=== PATIENT | male | born 1985 | race Caucasian/White ===

== ENCOUNTER 2016-09-25 04:16 | Inpatient (IN) | payer BC ==
[~2016-09-25] VITALS: Ht 185.4 cm; Wt 80.7 kg
[2016-09-25 08:46] VITALS: BP 93/49
[2016-09-25] MEDS ORDERED: Morphine Sulfate 2mg/ml Inj IVP PRN (09:45)
[2016-09-25 10:10] LABS: BASOPHILS % (AUTO) 0.4 % (0.0-2.0); LYMPHOCYTES % (AUTO) 9.5 % (20.0-45.0); MEAN CORPUSCULAR HEMOGLOBIN 30.3 PG (27.0-31.0); MEAN CORPUSCULAR HGB CONC 34.4 G/DL (32.0-36.0); MEAN CORPUSCULAR VOLUME 88 FL (80-99); MEAN PLATELET VOLUME 6.3 FL (6.5-10.1); MONOCYTES % (AUTO) 7.9 % (1.0-10.0); NEUTROPHILS % (AUTO) 82.2 % (45.0-75.0); PLATELET COUNT 339 K/UL (150-450); WHITE BLOOD COUNT 17.4 K/UL (4.8-10.8)
[2016-09-25 10:28] LABS: ALANINE AMINOTRANSFERASE 16 U/L (3-41); ALBUMIN/GLOBULIN RATIO 1.4 (1.0-2.7); ANION GAP 11 (5-15); ASPARTATE AMINO TRANSFERASE 17 U/L (5-40); CALCIUM 7.7 mg/dL (8.6-10.2); CARBON DIOXIDE 23 mEQ/L (20-30); CHLORIDE 100 mEQ/L (98-107); CREATININE 1.3 mg/dL (0.7-1.2); GLOMERULAR FILTRATION RATE > 60 mL/min (>60); HEMOLYSIS 3; POTASSIUM 3.9 mEQ/L (3.4-4.9); SODIUM 134 mEQ/L (135-145); TOTAL PROTEIN 5.1 g/dL (6.6-8.7)
[2016-09-25] MEDS ORDERED: Nitroglycerin Subl 0.4mg tab (Bottle Of 25) SL PRN (11:45)
[2016-09-25] MEDS ORDERED: DuoNeb 0.5-3(2.5)mg/3ml neb HHN PRN (12:00)
[2016-09-25] MEDS ORDERED: Miralax 17gm pkt ORAL PRN (12:00)
[2016-09-25 12:04] LABS: APPEARANCE,URINE SLIGHTLY CLOUDY; KETONES,URINE NEGATIVE (NEGATIVE); LEUKOCYTE ESTERASE ,URINE 2+ (NEGATIVE); NITRITE,URINE NEGATIVE (NEGATIVE); PH,URINE 6 (4.5-8.0); PROTEIN,URINE NEGATIVE (NEGATIVE); UROBILINOGEN,URINE NORMAL MG/DL (0.0-1.0)
[2016-09-25 12:16] VITALS: BP 95/65
[2016-09-25 12:55] LABS: BACTERIA,URINE FEW /HPF; RBC,URINE 0-2 /HPF (0 - 0); SQUAMOUS EPITHELIAL CELL,UR OCCASIONAL /LPF (NONE/OCC); WBC,URINE 15-20 /HPF (0 - 0)
[2016-09-25] MEDS: Cefepime HCl 2 GM in D5W 110 ML IV SCH (12:56)
--- NOTE | 2016-09-25 13:21 | Diagnostic Imaging Report ---
Indication: DYSPNEA Technique: Single portable AP view of the chest. Findings: Comparison: None. Left lung volume is mildly decreased compared to right with basal linear densities. Right lung normally inflated, clear. The bones and extra pulmonary soft tissues, cardiomediastinal silhouette, pulmonary vasculature, and pleural surfaces are unremarkable. IMPRESSION: Left lung base subsegmental atelectasis with apparent mild parenchymal volume loss. Otherwise negative portable AP chest.
[2016-09-25] MEDS ORDERED: Vancomycin 1.5 GM in D5W 325 ML IVPB ONE (14:00)
--- NOTE | 2016-09-25 15:17 | History and Physical ---
History of Present Illness General Date patient seen: Sep 25, 2016 Present Illness HPI 31 year old male without any PMHx expect for sexual promiscuity on Truvida for HIV prophylaxis, was taken by paramedics to [facility] with CC of fevers, headache and weakness, diarrhea as well. He had spinal tap in ER which was negative. He received a dose of Ceftriaxone and IV fluids and transferred to [place] under my care. Currently pt is feeling slightly better. He had total of > 5 BM in the last 24 hours. No sick contact. Allergies: Coded Allergies: NO KNOWN ALLERGIES (Verified Allergy, Unknown, 09/25/16) Patient History History Provided By: Patient Healthcare decision maker Resuscitation status Full Code Advanced Directive on File Review of Systems Constitutional: Reports: malaise, weakness Eye: Reports: no symptoms Gastrointestinal: Reports: diarrhea Physical Exam General Appearance: WD/WN Lines, tubes and drains: peripheral, central line HEENT: normocephalic, atraumatic Neck: non-tender, normal alignment Respiratory/Chest: chest wall non-tender, normal breath sounds Cardiovascular/Chest: normal peripheral pulses, normal rate Abdomen: normal bowel sounds, soft Genitourinary/Rectal: normal genital exam, heme negative stool Last 24 Hour Vital Signs Date Time Temp Pulse Resp B/P Pulse Ox O2 Delivery O2 Flow Rate FiO2 09/25/16 13:55 98.2 09/25/16 12:16 98.2 114 18 95/65 98 Room Air 09/25/16 11:30 104 16 Room Air 21 09/25/16 08:46 99.7 106 18 93/49 97 Room Air Laboratory Tests Test 09/25/16 09:45 09/25/16 11:40 White Blood Count 17.4 K/UL (4.8-10.8) H Red Blood Count 4.60 M/UL (4.70-6.10) L Hemoglobin 13.9 G/DL (14.2-18.0) L Hematocrit 40.4 % (42.0-52.0) L Mean Corpuscular Volume 88 FL (80-99) Mean Corpuscular Hemoglobin 30.3 PG (27.0-31.0) Mean Corpuscular Hemoglobin Concent 34.4 G/DL (32.0-36.0) Red Cell Distribution Width 12.0 % (11.6-14.8) Platelet Count 339 K/UL (150-450) Mean Platelet Volume 6.3 FL (6.5-10.1) L Neutrophils (%) (Auto) 82.2 % (45.0-75.0) H Lymphocytes (%) (Auto) 9.5 % (20.0-45.0) L Monocytes (%) (Auto) 7.9 % (1.0-10.0) Eosinophils (%) (Auto) 0.0 % (0.0-3.0) Basophils (%) (Auto) 0.4 % (0.0-2.0) Sodium Level 134 mEQ/L (135-145) L Potassium Level 3.9 mEQ/L (3.4-4.9) Chloride Level 100 mEQ/L (98-107) Carbon Dioxide Level 23 mEQ/L (20-30) Anion Gap 11 (5-15) Blood Urea Nitrogen 10 mg/dL (7-23) Creatinine 1.3 mg/dL (0.7-1.2) H Estimat Glomerular Filtration Rate > 60 mL/min (>60) Glucose Level 126 mg/dL (74-106) H Calcium Level 7.7 mg/dL (8.6-10.2) L Total Bilirubin 0.8 mg/dL (0.0-1.2) Aspartate Amino Transf (AST/SGOT) 17 U/L (5-40) Alanine Aminotransferase (ALT/SGPT) 16 U/L (3-41) Alkaline Phosphatase 49 U/L (40-129) Total Protein 5.1 g/dL (6.6-8.7) L Albumin 3.0 g/dL (3.5-5.2) L Globulin 2.1 g/dL Albumin/Globulin Ratio 1.4 (1.0-2.7) Urine Color Yellow Urine Appearance Slightly cloudy Urine pH 6 (4.5-8.0) Urine Specific [place] 1.010 (1.005-1.035) Urine Protein Negative (NEGATIVE) Urine Glucose (UA) Negative (NEGATIVE) Urine Ketones Negative (NEGATIVE) Urine Occult Blood 1+ (NEGATIVE) H Urine Nitrite Negative (NEGATIVE) Urine Bilirubin Negative (NEGATIVE) Urine Urobilinogen Normal MG/DL (0.0-1.0) Urine Leukocyte Esterase 2+ (NEGATIVE) H Urine RBC 0-2 /HPF (0 - 0) H Urine WBC 15-20 /HPF (0 - 0) H Urine Squamous Epithelial Cells Occasional /LPF Urine Bacteria Few /HPF (NONE) Height (Feet): 6 Height (Inches): 1.00 Weight (Pounds): 178 Medications Current Medications Medications (Trade) Dose Ordered Sig/Misael Route PRN Reason Start Time Stop Time Status Last Admin Dose Admin Acetaminophen (Tylenol) 650 mg Q4H PRN ORAL Mild Pain/Temp > 100.5 09/25/16 12:00 10/25/16 11:59 09/25/16 12:56 Albuterol/ Ipratropium 3 ml 3 ml Q4H PRN HHN Shortness of Breath 09/25/16 12:00 09/30/16 11:59 Cefepime HCl/ Dextrose (Maxipime/D5W) 110 ml @ 220 mls/hr Q12HR@0100,1300 IV 09/25/16 13:00 10/02/16 12:59 09/25/16 12:56 Heparin Sodium (Porcine) (Heparin 5000 units/ml) 5,000 units EVERY 12 HOURS SUBQ 09/25/16 21:00 10/25/16 20:59 Morphine Sulfate (Morphine Sulfate) 2 mg Q4H PRN IVP Moderate Pain (Pain Scale 4-6) 09/25/16 09:45 10/02/16 09:44 Nitroglycerin (Ntg) 0.4 mg Q5MIN X 3 DOSES PRN SL Prn Chest Pain 09/25/16 11:45 10/25/16 11:44 Ondansetron HCl (Zofran) 4 mg Q6H PRN IVP Nausea & Vomiting 09/25/16 12:00 10/25/16 11:59 Polyethylene Glycol (Miralax) 17 gm DAILYPRN PRN ORAL Constipation 09/25/16 12:00 10/25/16 11:59 Temazepam (Restoril) 15 mg HSPRN PRN ORAL Insomnia 09/25/16 21:00 10/02/16 20:59 Vancomycin HCl 1.5 gm/Dextrose 325 ml @ 162.5 mls/ hr ONCE ONCE IVPB 09/25/16 14:00 09/25/16 15:59 09/25/16 14:08 Vancomycin HCl 1 ea 1 ea DAILY PRN MISC . 09/25/16 11:45 10/25/16 11:44 Vancomycin HCl/ Dextrose (Vancomycin/D5W) 275 ml @ 183.333 mls/hr Q12HR@0200,1400 IVPB 09/26/16 02:00 10/01/16 01:59 Assessment/Plan Problem List: (1) Intractable diarrhea ICD Codes: R19.7 - Diarrhea, unspecified SNOMED: 806034224 (2) Hypotension ICD Codes: I95.9 - Hypotension, unspecified SNOMED: 31234422 (3) Sepsis ICD Codes: A41.9 - Sepsis, unspecified organism SNOMED: 08573515 Assessment/Plan santos cultures broad spectrum antibiotics ID consult check HIV status IV fluids HORTENCIA RINCON Sep 25, 2016 15:17
[2016-09-25 16:00] VITALS: BP 96/60
--- NOTE | 2016-09-25 16:20 | Consultation ---
Consult Note Consult Note ID CONSULT: Faizan# [id number] Assessment/Plan ASSESSMENT: 31 y/o male with: // Diarrhea r/o infectious - stool studies pending // Possible UTI r/o STI // Headache, mild - improved, no evidence meningitis - SP LP OSH - CSF: WBC 3, RBC 36, TP 33, Glc 77, GS, Cx, HSV PCR pending // Probable sepsis // Leukocytosis - worse // Fever - improved // VASILIY - improved, Cr 1.54-->1.3 // High risk sexual behavior, on truvada PrEP // IVDA / methamphetamine abuse - no evidence injection site cellulitis r/o SBE / bacteremia // NKDA // Full Code PLAN: - continue empiric IV vancomycin, cefepime d# 1 - check HIV PCR, RPR, stool culture, CT/GC NAAT, TTE - f/u cultures - f/u gonzales ( flu, CSF GS, Cx, HSV PCR ) - monitor CBC, temperatures - monitor BMP Thanks! Will follow LAYNE WRIGHT Sep 25, 2016 16:20
[2016-09-25 20:00] VITALS: BP 99/55
--- NOTE | 2016-09-25 21:38 | Consultation ---
DATE OF CONSULTATION: 09/25/2016 INFECTIOUS DISEASES CONSULTATION REFERRING PHYSICIAN: Anika Saleh M.D. REASON FOR CONSULTATION: Sepsis. HISTORY OF PRESENT ILLNESS: This is a 31-year-old male with a history of IV drug abuse and high risk sexual behavior on Truvada pre-exposure prophylaxis, transferred from [facility] on 09/25/2016 with fevers, diarrhea and headaches. The patient underwent lumbar puncture at [place] and CSF was not consistent with meningitis. The patient complains of watery diarrhea and fevers of acute onset yesterday. He also endorses IV methamphetamine abuse in the right AC fossa. There is no evidence of cellulitis. Urinalysis suggests possible urinary tract infection. Cultures are pending. He has been started on empiric vancomycin and cefepime. ID now consulted to assist in management. PAST MEDICAL HISTORY: None. PAST SURGICAL HISTORY: None. ALLERGIES: No known drug allergies. MEDICATIONS: 1. Vancomycin. 2. Cefepime. 3. Subcutaneous heparin. FAMILY HISTORY: Noncontributory. SOCIAL HISTORY: The patient has a high risk sexual behavior and is on Truvada pre-exposure prophylaxis. He also has a history of IV methamphetamine abuse. REVIEW OF SYSTEMS: As per history of present illness. Ten systems reviewed. All pertinent positives and negatives noted. PHYSICAL EXAMINATION: VITAL SIGNS: Maximum temperature 99.7 degrees, blood pressure 96/65, heart rate 114, respiratory rate 18, and saturating 98% on room air. GENERAL: No apparent distress. Nontoxic appearing. CARDIOVASCULAR: Regular rate and rhythm. Tachycardia, no murmurs. PULMONARY: Clear to auscultation bilaterally. ABDOMINAL: Bowel sounds present. Soft, nondistended, and nontender. EXTREMITIES: No edema. SKIN: No rash. NEUROLOGICAL: Alert and oriented x3, nonfocal. LABORATORY DATA: White blood cell count 17.4, increased from 15.9 with left shift, hemoglobin 13.9, and platelets 339,000. Sodium 134, potassium 3.9, chloride 100, bicarbonate 23, BUN 10, and creatinine 1.3 decreased from 1.54. Liver function tests are within normal limits. Lactic acid is 2.1. MICROBIOLOGY: 1. On 09/25/2015, blood culture pending. 2. On 09/25/2015, urine culture pending. 3. On 09/25/2015, sputum culture pending. 4. On 09/25/2015, C. difficile toxin pending. 5. On 09/24/2015, outside hospital blood culture pending. 6. On 09/24/2015, outside hospital CSF and Gram stain culture pending. 7. On 09/24/2015, outside hospital influenza negative. IMAGING: On 09/25/2015, chest x-ray, left lower lobe atelectasis. ASSESSMENT: 1. Diarrhea, rule out infectious. Stool studies are pending. 2. Possible urinary tract infection rule out sexually transmitted infection. 3. Headache, mild and improved. No evidence of meningitis. 4. Probable sepsis. 5. Leukocytosis, worsening. 6. Fever, improved. 7. Acute renal insufficiency, improved. 8. High risk sexual behavior on Truvada pre-exposure prophylaxis. 9. Intravenous drug abuse/methamphetamine abuse rule out endocarditis and bacteremia. 10. No known drug allergies. 11. Full Code. PLAN: 1. Continue empiric IV vancomycin and cefepime day #1. 2. Check HIV, PCR, RPR, stool culture, chlamydia and gonorrhea. 3. Nucleic acid amplification test. 4. , echocardiogram. 5. Follow up cultures and [place] blood cultures, flu screen, CSF, Gram stain culture, and herpes simplex virus PCR. 6. Monitor CBC and temperatures. 7. Monitor BMP. Thank you. We will follow. Silvestre Bojorquez M.D. DR: SUZE JOB#: [id number] CC: Anika Saleh M.D.; Fax#: [phone] Son M.D; Fax#: [phone]
[2016-09-25] MEDS: Heparin 5000 units/ml inj SUBQ SCH (22:21)
[2016-09-26 00:14] VITALS: BP 100/60
[2016-09-26] MEDS ORDERED: Vancomycin 1 GM in D5W 275 ML IV SCH (00:30)
[2016-09-26] MEDS: Cefepime HCl 2 GM in D5W 110 ML IV SCH ×2 (01:02→12:05)
[2016-09-26] MEDS: Vancomycin 1250mg/D5W 275ml IVPB SCH ×4 (02:20→13:16)
[2016-09-26 04:00] VITALS: BP 98/58
[2016-09-26 08:18] LABS: BASOPHILS % (AUTO) 0.4 % (0.0-2.0); EOSINOPHILS % (AUTO) 0.5 % (0.0-3.0); LYMPHOCYTES % (AUTO) 18.6 % (20.0-45.0); MEAN CORPUSCULAR HEMOGLOBIN 30.7 PG (27.0-31.0); MEAN CORPUSCULAR HGB CONC 34.8 G/DL (32.0-36.0); MEAN CORPUSCULAR VOLUME 88 FL (80-99); MEAN PLATELET VOLUME 6.1 FL (6.5-10.1); MONOCYTES % (AUTO) 9.5 % (1.0-10.0); PLATELET COUNT 312 K/UL (150-450); RED BLOOD COUNT 4.38 M/UL (4.70-6.10); RED CELL DISTRIBUTION WIDTH 12.3 % (11.6-14.8); WHITE BLOOD COUNT 10.7 K/UL (4.8-10.8)
[2016-09-26 08:19] VITALS: BP 110/69
[2016-09-26] MEDS: Heparin 5000 units/ml inj SUBQ SCH ×2 (08:27→21:00)
[2016-09-26 08:36] LABS: ALANINE AMINOTRANSFERASE 20 U/L (3-41); ANION GAP 11 (5-15); ASPARTATE AMINO TRANSFERASE 22 U/L (5-40); CARBON DIOXIDE 26 mEQ/L (20-30); CHLORIDE 99 mEQ/L (98-107); CREATININE 1.2 mg/dL (0.7-1.2); GLOMERULAR FILTRATION RATE > 60 mL/min (>60); HEMOLYSIS 6; POTASSIUM 3.9 mEQ/L (3.4-4.9); SODIUM 136 mEQ/L (135-145); TOTAL PROTEIN 5.6 g/dL (6.6-8.7)
[2016-09-26 12:43] VITALS: BP 109/69
--- NOTE | 2016-09-26 15:31 | Pulmonology Progress Note ---
Assessment/Plan Problems: (1) Intractable diarrhea (2) Hypotension (3) Sepsis Assessment/Plan cultures pending tried to call [facility] case management department, nobody was available afebrile feeling better Subjective ROS Limited/Unobtainable: No Constitutional: Reports: no symptoms HEENT: Repors: no symptoms Respiratory: Reports: no symptoms Cardiovascular: Reports: no symptoms Gastrointestinal/Abdominal: Reports: no symptoms Genitourinary: Reports: no symptoms Allergies: Coded Allergies: NO KNOWN ALLERGIES (Verified Allergy, Unknown, 09/25/16) Objective Last 24 Hour Vital Signs Date Time Temp Pulse Resp B/P Pulse Ox O2 Delivery O2 Flow Rate FiO2 09/26/16 12:43 98.4 83 18 109/69 97 Room Air 09/26/16 08:19 99.0 88 18 110/69 96 Room Air 09/26/16 07:42 83 09/26/16 07:26 93 15 Room Air 21 09/26/16 04:00 98.0 98 20 98/58 98 Room Air 09/26/16 04:00 79 09/26/16 00:14 98.0 100 20 100/60 98 Room Air 09/26/16 00:00 79 09/25/16 23:21 99.5 09/25/16 20:00 88 09/25/16 20:00 99.5 93 18 99/55 98 Room Air 09/25/16 19:08 95 18 Room Air 21 09/25/16 16:00 90 09/25/16 16:00 98.1 93 18 96/60 98 Room Air Intake and Output 09/25/16 09/26/16 19:00 07:00 Intake Total 320 ml 1285.000 ml Balance 320 ml 1285.000 ml Intake Oral 120 ml IV Total 200 ml 1285.000 ml # Voids 1 # Bowel Movements 3 General Appearance: WD/WN HEENT: normocephalic, atraumatic Respiratory/Chest: chest wall non-tender, lungs clear Cardiovascular: normal peripheral pulses, normal rate Abdomen: normal bowel sounds, soft, non tender Genitourinary: normal external genitalia Extremities: no cyanosis Skin: no lesions 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 Microbiology Date/Time Source Procedure Growth Status 09/25/16 20:10 Stool Clostridium difficile Toxin Assay - Final Complete 09/25/16 11:40 Indwelling Cath Urine Culture - Preliminary NO GROWTH Resulted Laboratory Tests 09/25/16 18:00: Rapid Plasma Reagin Non reactive, HIV-1 RNA (PCR) log10 Value [Pending], HIV-1 RNA Ultraquantitative (PCR) [Pending] 09/26/16 06:55: White Blood Count 10.7, Red Blood Count 4.38L, Hemoglobin 13.5L, Hematocrit 38.7L, Mean Corpuscular Volume 88, Mean Corpuscular Hemoglobin 30.7, Mean Corpuscular Hemoglobin Concent 34.8, Red Cell Distribution Width 12.3, Platelet Count 312, Mean Platelet Volume 6.1L, Neutrophils (%) (Auto) 71.0, Lymphocytes ( %) (Auto) 18.6L, Monocytes (%) (Auto) 9.5, Eosinophils (%) (Auto) 0.5, Basophils (%) (Auto) 0.4, Sodium Level 136, Potassium Level 3.9, Chloride Level 99, Carbon Dioxide Level 26, Anion Gap 11, Blood Urea Nitrogen 6L, Creatinine 1.2, Estimat Glomerular Filtration Rate > 60, Glucose Level 109H, Calcium Level 8.0L, Total Bilirubin 0.4, Aspartate Amino Transf (AST/SGOT) 22, Alanine Aminotransferase (ALT/SGPT) 20, Alkaline Phosphatase 57, Total Protein 5.6L, Albumin 2.9L, Globulin 2.7, Albumin/Globulin Ratio 1.0 Current Medications Medications (Trade) Dose Ordered Sig/Misael Route PRN Reason Start Time Stop Time Status Last Admin Dose Admin Acetaminophen (Tylenol) 650 mg Q4H PRN ORAL Mild Pain/Temp > 100.5 09/25/16 12:00 10/25/16 11:59 09/25/16 22:22 Albuterol/ Ipratropium 3 ml 3 ml Q4H PRN HHN Shortness of Breath 09/25/16 12:00 09/30/16 11:59 Cefepime HCl/ Dextrose (Maxipime/D5W) 110 ml @ 220 mls/hr Q12HR@0100,1300 IV 09/25/16 13:00 10/02/16 12:59 09/26/16 12:05 Emtricitabine/ Tenofovir (Truvada) 1 tab BEDTIME ORAL 09/26/16 20:00 10/26/16 19:59 UNV Heparin Sodium (Porcine) (Heparin 5000 units/ml) 5,000 units EVERY 12 HOURS SUBQ 09/25/16 21:00 10/25/16 20:59 09/25/16 22:21 Morphine Sulfate (Morphine Sulfate) 2 mg Q4H PRN IVP Moderate Pain (Pain Scale 4-6) 09/25/16 09:45 10/02/16 09:44 Nitroglycerin (Ntg) 0.4 mg Q5MIN X 3 DOSES PRN SL Prn Chest Pain 09/25/16 11:45 10/25/16 11:44 Ondansetron HCl (Zofran) 4 mg Q6H PRN IVP Nausea & Vomiting 09/25/16 12:00 10/25/16 11:59 09/25/16 16:32 Polyethylene Glycol (Miralax) 17 gm DAILYPRN PRN ORAL Constipation 09/25/16 12:00 10/25/16 11:59 Potassium Chloride/Dextrose/ Sodium Chloride (KCl/D5ns) 1,005 ml @ 100 mls/hr Q10H3M IV 09/25/16 16:00 10/25/16 15:59 09/26/16 11:53 Temazepam (Restoril) 15 mg HSPRN PRN ORAL Insomnia 09/25/16 21:00 10/02/16 20:59 Vancomycin HCl 1.25 gm/Dextrose 275 ml @ 183.333 mls/hr Q12HR@0200,1400 IVPB 09/26/16 02:00 10/01/16 01:59 09/26/16 13:16 Vancomycin HCl 1 ea 1 ea DAILY PRN MISC . 09/25/16 11:45 10/25/16 11:44 HORTENCIA RINCON Sep 26, 2016 15:31
[2016-09-26 16:00] VITALS: BP 108/67
--- NOTE | 2016-09-26 16:24 | Infectious Diseases Prog Note ---
Assessment/Plan Assessment/Plan ASSESSMENT: 31 y/o male with: // Diarrhea r/o infectious - improved - C.difficile(-), stool Cx pending // Possible UTI r/o STI - UCx NGTD, CT/GC NAAT pending // Headache, mild - improved, no evidence meningitis - SP LP OSH - CSF: WBC 3, RBC 36, TP 33, Glc 77, GS, Cx, HSV PCR pending // Negative RPR, HIV Ab ( PCR pending ) // Probable sepsis SP // Leukocytosis - resolved // Fever - resolved // VASILIY - resolved // High risk sexual behavior, on truvada PrEP // IVDA / methamphetamine abuse - no evidence injection site cellulitis r/o SBE / bacteremia - BCx, TTE pending // NKDA // Full Code PLAN: - continue empiric IV vancomycin, cefepime d# 2. May be ok to DC in AM off of ABX if remains afebrile, [place] micro unremarkable - f/u UCx, BCx, HIV PCR, stool culture, CT/GC NAAT, TTE - f/u zahl ( flu, BCx, CSF GS, Cx, HSV PCR ) - requested - monitor CBC, temperatures - monitor BMP Subjective Allergies: Coded Allergies: NO KNOWN ALLERGIES (Verified Allergy, Unknown, 09/25/16) Subjective remains afebrile. feeling better, wants to go home Objective Vital Signs Last 24 Hour Vital Signs Date Time Temp Pulse Resp B/P Pulse Ox O2 Delivery O2 Flow Rate FiO2 09/26/16 12:43 98.4 83 18 109/69 97 Room Air 09/26/16 08:19 99.0 88 18 110/69 96 Room Air 09/26/16 07:42 83 09/26/16 07:26 93 15 Room Air 21 09/26/16 04:00 98.0 98 20 98/58 98 Room Air 09/26/16 04:00 79 09/26/16 00:14 98.0 100 20 100/60 98 Room Air 09/26/16 00:00 79 09/25/16 23:21 99.5 09/25/16 20:00 88 09/25/16 20:00 99.5 93 18 99/55 98 Room Air 09/25/16 19:08 95 18 Room Air 21 Height (Feet): 6 Height (Inches): 1.00 Weight (Pounds): 178 General Appearance: no acute distress Respiratory/Chest: no respiratory distress Cardiovascular: normal rate, regular rhythm Abdomen: normal bowel sounds, soft, non tender, non distended Microbiology Date/Time Source Procedure Growth Status 09/25/16 20:10 Stool Clostridium difficile Toxin Assay - Final Complete 09/25/16 11:40 Indwelling Cath Urine Culture - Preliminary NO GROWTH Resulted Laboratory Tests Test 09/25/16 18:00 09/26/16 06:55 Rapid Plasma Reagin Non reactive (Non Reactive) HIV-1 RNA (PCR) log10 Value Pending HIV-1 RNA Ultraquantitative (PCR) Pending White Blood Count 10.7 K/UL (4.8-10.8) Red Blood Count 4.38 M/UL (4.70-6.10) L Hemoglobin 13.5 G/DL (14.2-18.0) L Hematocrit 38.7 % (42.0-52.0) L Mean Corpuscular Volume 88 FL (80-99) Mean Corpuscular Hemoglobin 30.7 PG (27.0-31.0) Mean Corpuscular Hemoglobin Concent 34.8 G/DL (32.0-36.0) Red Cell Distribution Width 12.3 % (11.6-14.8) Platelet Count 312 K/UL (150-450) Mean Platelet Volume 6.1 FL (6.5-10.1) L Neutrophils (%) (Auto) 71.0 % (45.0-75.0) Lymphocytes (%) (Auto) 18.6 % (20.0-45.0) L Monocytes (%) (Auto) 9.5 % (1.0-10.0) Eosinophils (%) (Auto) 0.5 % (0.0-3.0) Basophils (%) (Auto) 0.4 % (0.0-2.0) Sodium Level 136 mEQ/L (135-145) Potassium Level 3.9 mEQ/L (3.4-4.9) Chloride Level 99 mEQ/L (98-107) Carbon Dioxide Level 26 mEQ/L (20-30) Anion Gap 11 (5-15) Blood Urea Nitrogen 6 mg/dL (7-23) L Creatinine 1.2 mg/dL (0.7-1.2) Estimat Glomerular Filtration Rate > 60 mL/min (>60) Glucose Level 109 mg/dL (74-106) H Calcium Level 8.0 mg/dL (8.6-10.2) L Total Bilirubin 0.4 mg/dL (0.0-1.2) Aspartate Amino Transf (AST/SGOT) 22 U/L (5-40) Alanine Aminotransferase (ALT/SGPT) 20 U/L (3-41) Alkaline Phosphatase 57 U/L (40-129) Total Protein 5.6 g/dL (6.6-8.7) L Albumin 2.9 g/dL (3.5-5.2) L Globulin 2.7 g/dL Albumin/Globulin Ratio 1.0 (1.0-2.7) Current Medications Medications (Trade) Dose Ordered Sig/Misael Route PRN Reason Start Time Stop Time Status Last Admin Dose Admin Acetaminophen (Tylenol) 650 mg Q4H PRN ORAL Mild Pain/Temp > 100.5 09/25/16 12:00 10/25/16 11:59 09/25/16 22:22 Albuterol/ Ipratropium 3 ml 3 ml Q4H PRN HHN Shortness of Breath 09/25/16 12:00 09/30/16 11:59 Cefepime HCl/ Dextrose (Maxipime/D5W) 110 ml @ 220 mls/hr Q12HR@0100,1300 IV 09/25/16 13:00 10/02/16 12:59 09/26/16 12:05 Emtricitabine/ Tenofovir (Truvada) 1 tab BEDTIME ORAL 09/26/16 20:00 10/26/16 19:59 UNV Heparin Sodium (Porcine) (Heparin 5000 units/ml) 5,000 units EVERY 12 HOURS SUBQ 09/25/16 21:00 10/25/16 20:59 09/25/16 22:21 Morphine Sulfate (Morphine Sulfate) 2 mg Q4H PRN IVP Moderate Pain (Pain Scale 4-6) 09/25/16 09:45 10/02/16 09:44 Nitroglycerin (Ntg) 0.4 mg Q5MIN X 3 DOSES PRN SL Prn Chest Pain 09/25/16 11:45 10/25/16 11:44 Ondansetron HCl (Zofran) 4 mg Q6H PRN IVP Nausea & Vomiting 09/25/16 12:00 10/25/16 11:59 09/25/16 16:32 Polyethylene Glycol (Miralax) 17 gm DAILYPRN PRN ORAL Constipation 09/25/16 12:00 10/25/16 11:59 Potassium Chloride/Dextrose/ Sodium Chloride (KCl/D5ns) 1,005 ml @ 100 mls/hr Q10H3M IV 09/25/16 16:00 10/25/16 15:59 09/26/16 11:53 Temazepam (Restoril) 15 mg HSPRN PRN ORAL Insomnia 09/25/16 21:00 10/02/16 20:59 Vancomycin HCl 1.25 gm/Dextrose 275 ml @ 183.333 mls/hr Q12HR@0200,1400 IVPB 09/26/16 02:00 10/01/16 01:59 09/26/16 13:16 Vancomycin HCl 1 ea 1 ea DAILY PRN MISC . 09/25/16 11:45 10/25/16 11:44 LAYNE WRIGHT Sep 26, 2016 16:24
[2016-09-26 20:00] VITALS: BP 112/70
[2016-09-27] VITALS: BP 110/66
[2016-09-27] MEDS: Cefepime HCl 2 GM in D5W 110 ML IV SCH (00:34)
[2016-09-27] MEDS: Vancomycin 1250mg/D5W 275ml IVPB SCH ×2 (02:05)
[2016-09-27 02:06] LABS: BASOPHILS % (AUTO) 0.5 % (0.0-2.0); LYMPHOCYTES % (AUTO) 30.4 % (20.0-45.0); MEAN CORPUSCULAR HEMOGLOBIN 29.6 PG (27.0-31.0); MEAN CORPUSCULAR HGB CONC 34.1 G/DL (32.0-36.0); MEAN CORPUSCULAR VOLUME 87 FL (80-99); MEAN PLATELET VOLUME 6.6 FL (6.5-10.1); NEUTROPHILS % (AUTO) 55.1 % (45.0-75.0); PLATELET COUNT 312 K/UL (150-450); RED CELL DISTRIBUTION WIDTH 11.7 % (11.6-14.8); WHITE BLOOD COUNT 6.8 K/UL (4.8-10.8)
[2016-09-27 02:21] LABS: ALANINE AMINOTRANSFERASE 31 U/L (3-41); ALBUMIN/GLOBULIN RATIO 1.1 (1.0-2.7); ANION GAP 11 (5-15); ASPARTATE AMINO TRANSFERASE 34 U/L (5-40); CALCIUM 8.1 mg/dL (8.6-10.2); CARBON DIOXIDE 25 mEQ/L (20-30); CHLORIDE 104 mEQ/L (98-107); CREATININE 0.9 mg/dL (0.7-1.2); GLOMERULAR FILTRATION RATE > 60 mL/min (>60); HEMOLYSIS 17; MAGNESIUM 1.8 mg/dL (1.7-2.5); PHOSPHORUS 2.3 mg/dL (2.5-4.8); POTASSIUM 3.9 mEQ/L (3.4-4.9); SODIUM 140 mEQ/L (135-145); TOTAL PROTEIN 5.7 g/dL (6.6-8.7)
[2016-09-27 04:00] VITALS: BP 101/62
[2016-09-27 08:00] VITALS: BP 115/70
[2016-09-27] MEDS ORDERED: Vancomycin 1gm/D5W 275ml IVPB SCH ×2 (08:00)
[2016-09-27] MEDS: Heparin 5000 units/ml inj SUBQ SCH (08:29)
[2016-09-27] MEDS ORDERED: Nitroglycerin Subl 0.4mg tab (Bottle Of 25) SL PRN (10:00)
[2016-09-27] MEDS ORDERED: DuoNeb 0.5-3(2.5)mg/3ml neb HHN PRN (11:00)
[2016-09-27] MEDS ORDERED: Morphine Sulfate 2mg/ml Inj IVP PRN (11:00)
[2016-09-27] MEDS ORDERED: Miralax 17gm pkt ORAL PRN (11:00)
[2016-09-27 12:15] VITALS: BP 125/62
[2016-09-27] MEDS ORDERED: Cefepime HCl 2 GM in D5W 110 ML IV SCH (13:00)
[2016-09-27] MEDS ORDERED: Vancomycin 1 GM in D5W 275 ML IVPB SCH (14:00)
--- NOTE | 2016-09-27 15:25 | Infectious Diseases Prog Note ---
Assessment/Plan Assessment/Plan ASSESSMENT: 31 y/o male with: // Diarrhea - resolved - C.difficile(-), stool Cx(-) // Possible UTI r/o STI - UCx(-), CT/GC NAAT pending // Headache, mild - improved, no evidence meningitis - SP LP OSH - CSF: WBC 3, RBC 36, TP 33, Glc 77, GS, Cx, HSV PCR pending // Negative RPR, HIV Ab ( PCR pending ) // Probable sepsis SP // Leukocytosis - resolved // Fever - resolved // VASILIY - resolved // High risk sexual behavior, on truvada PrEP // IVDA / methamphetamine abuse - no evidence injection site cellulitis r/o SBE / bacteremia - BCx NGTD, TTE pending // NKDA // Full Code PLAN: - ok to DC off of ABX from ID standpoint. Will continue empiric IV vancomycin, cefepime d# 3 while still inpt - f/u BCx, HIV PCR, CT/GC NAAT, TTE - f/u gonzales ( flu, BCx, CSF GS, Cx, HSV PCR ) - requested, pending - monitor CBC, temperatures - monitor BMP d/w Dr. Saleh Subjective Allergies: Coded Allergies: NO KNOWN ALLERGIES (Verified Allergy, Unknown, 09/25/16) Subjective remains afebrile. feeling better, wants to go home Objective Vital Signs Last 24 Hour Vital Signs Date Time Temp Pulse Resp B/P Pulse Ox O2 Delivery O2 Flow Rate FiO2 09/27/16 12:15 97.6 75 21 125/62 95 Room Air 09/27/16 08:00 98.4 80 20 115/70 98 Room Air 09/27/16 07:29 86 20 Room Air 09/27/16 04:00 97.7 84 20 101/62 97 Room Air 09/27/16 00:00 98.0 77 20 110/66 96 Room Air 09/26/16 20:00 97.7 76 18 112/70 98 Room Air 09/26/16 19:37 80 16 Room Air 09/26/16 16:00 77 09/26/16 16:00 98.1 69 18 108/67 98 Room Air Height (Feet): 6 Height (Inches): 1.00 Weight (Pounds): 178 General Appearance: no acute distress Respiratory/Chest: no respiratory distress Cardiovascular: normal rate, regular rhythm Abdomen: normal bowel sounds, soft, non tender, non distended Microbiology Date/Time Source Procedure Growth Status 09/25/16 10:00 Blood Blood Culture - Preliminary NO GROWTH AFTER 24 HOURS Resulted 09/25/16 09:45 Blood Blood Culture - Preliminary NO GROWTH AFTER 24 HOURS Resulted 09/25/16 20:10 Stool Clostridium difficile Toxin Assay - Final Complete 09/25/16 20:10 Stool Stool Culture - Preliminary NORMAL FECAL HUMPHREY. Resulted 09/25/16 11:40 Indwelling Cath Urine Culture - Preliminary NO GROWTH AFTER 24 HOURS Resulted Laboratory Tests Test 09/27/16 01:35 White Blood Count 6.8 K/UL (4.8-10.8) Red Blood Count 4.60 M/UL (4.70-6.10) L Hemoglobin 13.6 G/DL (14.2-18.0) L Hematocrit 40.0 % (42.0-52.0) L Mean Corpuscular Volume 87 FL (80-99) Mean Corpuscular Hemoglobin 29.6 PG (27.0-31.0) Mean Corpuscular Hemoglobin Concent 34.1 G/DL (32.0-36.0) Red Cell Distribution Width 11.7 % (11.6-14.8) Platelet Count 312 K/UL (150-450) Mean Platelet Volume 6.6 FL (6.5-10.1) Neutrophils (%) (Auto) 55.1 % (45.0-75.0) Lymphocytes (%) (Auto) 30.4 % (20.0-45.0) Monocytes (%) (Auto) 12.0 % (1.0-10.0) H Eosinophils (%) (Auto) 2.0 % (0.0-3.0) Basophils (%) (Auto) 0.5 % (0.0-2.0) Sodium Level 140 mEQ/L (135-145) Potassium Level 3.9 mEQ/L (3.4-4.9) Chloride Level 104 mEQ/L (98-107) Carbon Dioxide Level 25 mEQ/L (20-30) Anion Gap 11 (5-15) Blood Urea Nitrogen 6 mg/dL (7-23) L Creatinine 0.9 mg/dL (0.7-1.2) Estimat Glomerular Filtration Rate > 60 mL/min (>60) Glucose Level 137 mg/dL (74-106) H Calcium Level 8.1 mg/dL (8.6-10.2) L Phosphorus Level 2.3 mg/dL (2.5-4.8) L Magnesium Level 1.8 mg/dL (1.7-2.5) Total Bilirubin 0.2 mg/dL (0.0-1.2) Aspartate Amino Transf (AST/SGOT) 34 U/L (5-40) Alanine Aminotransferase (ALT/SGPT) 31 U/L (3-41) Alkaline Phosphatase 69 U/L (40-129) Total Protein 5.7 g/dL (6.6-8.7) L Albumin 3.0 g/dL (3.5-5.2) L Globulin 2.7 g/dL Albumin/Globulin Ratio 1.1 (1.0-2.7) Vancomycin Level Trough 5.5 ug/mL (5.0-12.0) Current Medications Medications (Trade) Dose Ordered Sig/Misael Route PRN Reason Start Time Stop Time Status Last Admin Dose Admin Acetaminophen (Tylenol) 650 mg Q4H PRN ORAL Mild Pain/Temp > 100.5 09/27/16 12:00 10/27/16 11:59 Albuterol/ Ipratropium (DuoNeb 0.5-3(2.5)mg/3ml) 3 ml Q4H PRN HHN Shortness of Breath 09/27/16 11:00 10/02/16 10:59 Cefepime HCl 2 gm/ Dextrose 110 ml @ 220 mls/hr Q12HR@0100,1300 IV 09/27/16 13:00 10/04/16 12:59 09/27/16 12:35 Emtricitabine/ Tenofovir (Truvada) 1 tab BEDTIME ORAL 09/27/16 21:00 10/27/16 20:59 Heparin Sodium (Porcine) (Heparin 5000 units/ml) 5,000 units EVERY 12 HOURS SUBQ 09/27/16 21:00 10/27/16 20:59 Morphine Sulfate (Morphine Sulfate) 2 mg Q4H PRN IVP Moderate Pain (Pain Scale 4-6) 09/27/16 11:00 10/04/16 10:59 Nitroglycerin (Ntg) 0.4 mg Q5MIN X 3 DOSES PRN SL Prn Chest Pain 09/27/16 10:00 10/27/16 09:59 Ondansetron HCl (Zofran) 4 mg Q6H PRN IVP Nausea & Vomiting 09/27/16 11:00 10/27/16 10:59 Polyethylene Glycol (Miralax) 17 gm DAILYPRN PRN ORAL Constipation 09/27/16 11:00 10/27/16 10:59 Potassium Chloride 10 meq/ Dextrose/Sodium Chloride 1,005 ml @ 100 mls/hr Q10H3M IV 09/27/16 18:00 10/27/16 17:59 Potassium Chloride 10 meq/ Dextrose/Sodium Chloride 1,005 ml @ 100 mls/hr Q10H3M IV 09/25/16 16:00 09/27/16 17:59 09/27/16 08:11 Temazepam (Restoril) 15 mg HSPRN PRN ORAL Insomnia 09/27/16 21:00 10/04/16 20:59 Vancomycin HCl (Vanco rx to dose) 1 ea DAILY PRN MISC . 09/27/16 11:00 10/27/16 10:59 Vancomycin HCl/ Dextrose (Vancomycin/D5W) 275 ml @ 183.708 mls/hr Q6H IVPB 09/27/16 14:00 10/02/16 13:59 09/27/16 13:59 LAYNE WRIGHT Sep 27, 2016 15:25
[2016-09-27 16:00] VITALS: BP 119/73
--- NOTE | 2016-09-27 17:34 | Pulmonology Progress Note ---
Assessment/Plan Problems: (1) Intractable diarrhea (2) Hypotension (3) Sepsis Assessment/Plan cultures from [facility] reviewed, all negative afebrile feeling better ID cleared and I agree with discharge off abx. pt had probably some viral infection that improved on its own. Subjective ROS Limited/Unobtainable: No HEENT: Repors: no symptoms Allergies: Coded Allergies: NO KNOWN ALLERGIES (Verified Allergy, Unknown, 09/25/16) Objective Last 24 Hour Vital Signs Date Time Temp Pulse Resp B/P Pulse Ox O2 Delivery O2 Flow Rate FiO2 09/27/16 12:15 97.6 75 21 125/62 95 Room Air 09/27/16 08:00 98.4 80 20 115/70 98 Room Air 09/27/16 07:29 86 20 Room Air 09/27/16 04:00 97.7 84 20 101/62 97 Room Air 09/27/16 00:00 98.0 77 20 110/66 96 Room Air 09/26/16 20:00 97.7 76 18 112/70 98 Room Air 09/26/16 19:37 80 16 Room Air Intake and Output 09/26/16 09/27/16 19:00 07:00 Intake Total 840 ml 1476.633 ml Balance 840 ml 1476.633 ml Intake Oral 240 ml IV Total 600 ml 1476.633 ml # Voids 2 2 # Bowel Movements 2 1 General Appearance: WD/WN, no acute distress Cardiovascular: normal peripheral pulses, normal rate Abdomen: normal bowel sounds, soft, non tender Genitourinary: normal external genitalia Microbiology Date/Time Source Procedure Growth Status 09/25/16 10:00 Blood Blood Culture - Preliminary NO GROWTH AFTER 24 HOURS Resulted 09/25/16 09:45 Blood Blood Culture - Preliminary NO GROWTH AFTER 24 HOURS Resulted 09/25/16 20:10 Stool Clostridium difficile Toxin Assay - Final Complete 09/25/16 20:10 Stool Stool Culture - Preliminary NORMAL FECAL HUMPHREY. Resulted 09/25/16 11:40 Indwelling Cath Urine Culture - Preliminary NO GROWTH AFTER 24 HOURS Resulted Laboratory Tests 09/27/16 01:35: White Blood Count 6.8, Red Blood Count 4.60L, Hemoglobin 13.6L, Hematocrit 40.0L , Mean Corpuscular Volume 87, Mean Corpuscular Hemoglobin 29.6, Mean Corpuscular Hemoglobin Concent 34.1, Red Cell Distribution Width 11.7, Platelet Count 312, Mean Platelet Volume 6.6, Neutrophils (%) (Auto) 55.1, Lymphocytes (% ) (Auto) 30.4, Monocytes (%) (Auto) 12.0H, Eosinophils (%) (Auto) 2.0, Basophils (%) (Auto) 0.5, Sodium Level 140, Potassium Level 3.9, Chloride Level 104, Carbon Dioxide Level 25, Anion Gap 11, Blood Urea Nitrogen 6L, Creatinine 0.9, Estimat Glomerular Filtration Rate > 60, Glucose Level 137H, Calcium Level 8.1L, Phosphorus Level 2.3L, Magnesium Level 1.8, Total Bilirubin 0.2, Aspartate Amino Transf (AST/SGOT) 34, Alanine Aminotransferase (ALT/SGPT) 31, Alkaline Phosphatase 69, Total Protein 5.7L, Albumin 3.0L, Globulin 2.7, Albumin /Globulin Ratio 1.1, Vancomycin Level Trough 5.5 Current Medications Medications (Trade) Dose Ordered Sig/Misael Route PRN Reason Start Time Stop Time Status Last Admin Dose Admin Acetaminophen (Tylenol) 650 mg Q4H PRN ORAL Mild Pain/Temp > 100.5 09/27/16 12:00 10/27/16 11:59 Albuterol/ Ipratropium (DuoNeb 0.5-3(2.5)mg/3ml) 3 ml Q4H PRN HHN Shortness of Breath 09/27/16 11:00 10/02/16 10:59 Cefepime HCl 2 gm/ Dextrose 110 ml @ 220 mls/hr Q12HR@0100,1300 IV 09/27/16 13:00 10/04/16 12:59 09/27/16 12:35 Emtricitabine/ Tenofovir (Truvada) 1 tab BEDTIME ORAL 09/27/16 21:00 10/27/16 20:59 Heparin Sodium (Porcine) (Heparin 5000 units/ml) 5,000 units EVERY 12 HOURS SUBQ 09/27/16 21:00 10/27/16 20:59 Morphine Sulfate (Morphine Sulfate) 2 mg Q4H PRN IVP Moderate Pain (Pain Scale 4-6) 09/27/16 11:00 10/04/16 10:59 Nitroglycerin (Ntg) 0.4 mg Q5MIN X 3 DOSES PRN SL Prn Chest Pain 09/27/16 10:00 10/27/16 09:59 Ondansetron HCl (Zofran) 4 mg Q6H PRN IVP Nausea & Vomiting 09/27/16 11:00 10/27/16 10:59 Polyethylene Glycol (Miralax) 17 gm DAILYPRN PRN ORAL Constipation 09/27/16 11:00 10/27/16 10:59 Potassium Chloride 10 meq/ Dextrose/Sodium Chloride 1,005 ml @ 100 mls/hr Q10H3M IV 09/27/16 18:00 10/27/16 17:59 Potassium Chloride 10 meq/ Dextrose/Sodium Chloride 1,005 ml @ 100 mls/hr Q10H3M IV 09/25/16 16:00 09/27/16 17:59 09/27/16 08:11 Temazepam (Restoril) 15 mg HSPRN PRN ORAL Insomnia 09/27/16 21:00 10/04/16 20:59 Vancomycin HCl (Vanco rx to dose) 1 ea DAILY PRN MISC . 09/27/16 11:00 10/27/16 10:59 Vancomycin HCl/ Dextrose (Vancomycin/D5W) 275 ml @ 183.708 mls/hr Q6H IVPB 09/27/16 14:00 10/02/16 13:59 09/27/16 13:59 HORTENCIA RINCON Sep 27, 2016 17:34
[2016-09-27] MEDS ORDERED: Tubing IV Secondary IV ONE (18:29)
[2016-09-27] MEDS ORDERED: Heparin 5000 units/ml inj SUBQ SCH (21:00)
[2016-09-27] MEDS ORDERED: Emitricitabine/Tenofovir 200/300mg tab ORAL SCH ×2 (21:00)
--- NOTE | 2016-09-30 08:42 | Discharge Summary ---
Discharge Summary Hospital Course Date of Admission Sep 25, 2016 at 07:21 Date of Discharge Sep 27, 2016 at 18:30 Admitting Diagnosis HPI Vasu Stahl is a 31 year old male who was admitted on Sep 25, 2016 at 07:21 for Severe Sepsis,Fever Hospital Course ernst robledo # [id number] Discharge Medications New Medications: Emtricitabine/Tenofovir 200-300MG* (Truvada 200-300MG*) 1 Each Tablet 1 TAB ORAL DAILY, #30 TAB Discharge Condition Upon Discharge: stable Discharge Disposition Patient was discharged to Home () Discharge Diagnoses: Ab[facility]Sherita LINARES Sep 30, 2016 08:42
--- NOTE | 2016-09-30 10:51 | Cardiology Report ---
APPROVED REPORT EXAM: Two-dimensional and M-mode echocardiogram with Doppler and color Doppler. INDICATION Endocarditis M-Mode DIMENSIONS IVSd0.9 (0.7-1.1cm)Left Atrium (MM)3.5 (1.6-4.0cm) LVDd4.4 (3.5-5.6cm)Aortic Root3.3 (2.0-3.7cm) PWd1.2 (0.7-1.1cm)Aortic Cusp Exc.2.5 (1.5-2.0cm) IVSs1.5 cm LVDs3.0 (2.5-4.0cm) PWs1.4 cm Normal left ventricular chamber size, systolic function and wall motion. Left ventricular ejection fraction estimated to be 55 %. No evidence of left ventricular hypertrophy. Anterior Echo-free space, may be due to pericardial fat or effusion. All other cardiac chamber sizes are within normal limits. Mild focal aortic valve sclerosis with adequate cusp excursion. Mildly thickened mitral valve leaflets with normal excursion. Mild mitral annulus and aortic root calcification. Normal pulmonic valve structure. Normal tricuspid valve structure. IVC at normal size with physiologic collapse. No discrete vegetations seen, however may not be excluded by transthoracic 2-D echo. A color flow and spectral Doppler study was performed and revealed: Trace mitral regurgitation. Mitral inflow indicates normal left ventricular diastolic function. Trace tricuspid regurgitation. Tricuspid systolic velocities suggests peak right ventricular systolic pressure of 11 mmHg.
--- NOTE | 2016-10-01 03:49 | Discharge Summary 2 SIG ---
DATE OF ADMISSION: 09/25/2016 DATE OF DISCHARGE: 09/27/2016 REASON FOR ADMISSION: 31 years old male, was transferred to [facility] from [facility] for further management. The patient with history of intravenous drug abuse and high risk sexual behavior, on Truvada, pre-exposure prophylaxis, came with fevers, intractable diarrhea, and headaches. The patient underwent lumbar puncture at [facility] and cerebrospinal fluid analysis was not consistent with meningitis. The patient was complaining of watery diarrhea and fevers with acute onset, and he also endorsed intravenous methamphetamine abuse in the right antecubital fossa, no evidence of cellulitis. Urinalysis suggested possible urinary tract infection with pyuria and few bacteria. The patient pancultured in the emergency room, started on empiric antibiotics. Infectious Diseases consulted for further management. The patient also noted to be hypotensive, pulse oximetry was stable on the room air. The\ patient noted to be on admission with leukocytosis , WBC was 17.4 and hemoglobin and hematocrit were stable. The patient also showed evidence of acute kidney injury with creatinine of 1.3 and BUN of 10. The patient admitted to Med/Surg floor for further management. ADMITTING DIAGNOSES: 1. Leukocytosis, possible sepsis. 2. Intractable diarrhea. 3. Hypertension. 4. Acute renal insufficiency/acute tubular necrosis, likely secondary to dehydration. HOSPITAL COURSE: The patient admitted to Med/Surg floor. The patient was pancultured and started on empiric antibiotics. Infectious Disease consult requested. The patient started on IV fluids with close monitoring of the renal parameters and blood pressure. Stool for C. difficile was negative. Stool culture was positive for Shigella. Urine culture was negative. Blood culture were negative. Leukocytosis resolved. The patient afebrile, diarrhea resolved. While in the hospital, the patient was still on the IV antibiotics. Per Infectious Disease doctor , the patient status post lumbar puncture and fluid analysis was not consistent with meningitis. Blood culture negative. Human immunodeficiency virus status negative. RPR negative. ID specialist recommended to keep the patient off antibiotics upon discharge. Blood pressure stable. For high risk of sexual behavior, continue Truvada. The patient counseled on abstinence from the street drugs. The patient was discharged home. DISCHARGE DIAGNOSES: 1. Possible sepsis. 2. Infectious diarrhea (Shigella). 3. Hypertension, resolved. 4. Acute renal insufficiency/acute tubular necrosis, secondary to dehydration, resolved. 5. High risk sexual behavior. 6. Intravenous drug abuse/amphetamine abuse. DISCHARGE MEDICATIONS: No home medications , recommended continue Truvada. DISCHARGE INSTRUCTIONS: The patient discharged home. Follow up with the primary medical doctor. Counseled on abstinence from the street drugs and avoid high risk sexual behavior. Anika Saleh M.D. I have been assigned to dictate discharge summary on this account and I was not involved in the patient's management. Sherita Barone ([facility] N.PKathy DR: AKIKO JOB#: [id number] CC: BYRON
[2016-10-01 15:17] LABS: HIV RNA PCR QUANT <20 copies/mL (.)
[2016-10-02] MEDS ORDERED: TRUVADA 200 MG1 EAC1 ORAL (13:19)
== END 2016-09-27 18:30 | disposition home or self-care (01) | DRG 871 ==
LOC: 2E 07:21 → 4E 09-27 10:17
DX: A41.9 Sepsis, unspecified organism (principal); N17.0 Acute kidney failure with tubular necrosis; A09 Infectious gastroenteritis and colitis, unspecified; N39.0 Urinary tract infection, site not specified; A03.9 Shigellosis, unspecified; I10 Essential (primary) hypertension; E86.0 Dehydration; F15.10 Other stimulant abuse, uncomplicated
CPT/HCPCS: 36415; 71010; 80053; 80202; 81001; 83735; 84100; 85025; 86592; 86703; 87040; 87045; 87086; 87181; 87493; 87536; 93306; 94664; J2405